=== PATIENT | female | born 1965 | race Caucasian/White ===

== ENCOUNTER 2017-10-07 07:49 | Emergency (ER) | payer OTHER ==
[2017-10-07 07:58] VITALS: BP 156/66; PULSE 75; RESP 20; TEMP 97.4; O2SAT 99
[2017-10-07] MEDS ORDERED: Naproxen 500 MG TAB PO ONE ×2 (08:26→08:40)
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
--- NOTE | 2017-10-07 13:14 | RAD ---
PROCEDURE: Right Knee Radiographs. HISTORY: pain COMPARISON: None. FINDINGS: BONES: No fracture appreciated. Diffuse spurring most pronounced medial tibial plateau and posterior tibial plateau JOINTS: Tricompartmental joint space narrowing - medial femoral tibial compartment most notable. JOINT EFFUSION: Minimal anterior retropatellar joint effusion possible. Summation of soft tissues versus possible popliteal cyst per increased posterior soft tissue density perceived OTHER FINDINGS: None. IMPRESSION: No fracture or lytic lesion. 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
--- NOTE | 2017-10-07 13:16 | RAD ---
PROCEDURE: HISTORY: pain COMPARISON: None TECHNIQUE: AP view of the pelvis and applicable frog leg views obtained. FINDINGS: Bilateral superolateral hip joint space narrowing - right acetabular roof spurring slightly more pronounced. He superior right acetabular subchondral cystic change noted. Inferior lumbar spondylosis left side greater than right some vertical bridging osteophytosis possible Benign-appearing bone island left intertrochanteric SI joints and pubic symphysis unremarkable IMPRESSION: No fracture or lytic lesion. -limited evaluation of the sacrum -overlying bowel gas here noted Bilateral hip degenerative type in joint-space narrowing -slightly greater senescent changes right side Lumbar spondylosis
== END 2017-10-07 11:26 | disposition home or self-care (01) ==
LOC: H.ER 07:49
DX: S86.819A Strain of other muscle(s) and tendon(s) at lower leg level, unspecified leg, initial encounter (principal); X50.9XXA Other and unspecified overexertion or strenuous movements or postures, initial encounter; Y92.89 Other specified places as the place of occurrence of the external cause; I10 Essential (primary) hypertension; M17.11 Unilateral primary osteoarthritis, right knee